=== PATIENT | female | born 1970 ===

== ENCOUNTER 2016-08-01 09:31 | Emergency (ER) | payer OTHER ==
[2016-08-01 10:11] VITALS: RESP 18; TEMP 98.2; BMI 29.5
--- NOTE | 2016-08-01 10:53 | ED PDOC ---
Arrival/HPI - General Chief Complaint: Dizziness/Lightheaded Time Seen by Provider: 08/01/16 10:35 Historian: Patient - History of Present Illness Narrative History of Present Illness (Text): 08/01/16 10:53 46 year old female whose past medical history includes acid reflux and asthma presents to the emergency department with dizziness and nausea for the past three days. She states it has been constant, worsening today. She states it is worse in the morning when she sits up. She also complains of urinary frequent. No urgency or dysuria. Denies diarrhea, fever, cough, ear pain, or vaginal bleeding. PMD: None Time/Duration: < week Symptom Onset: Gradual Symptom Course: Worsening Associated Symptoms (Text): None Past Medical History - Provider Review Nursing Documentation Reviewed: Yes - Infectious Disease Hx of Infectious Diseases: None - Tetanus Immunization Tetanus Immunization: Unknown - Cardiac Hx Cardiac Disorders: No - Pulmonary Hx Respiratory Disorders: Yes Hx Asthma: Yes - Neurological Hx Neurological Disorder: No - HEENT Hx HEENT Disorder: No - Renal Hx Renal Disorder: No - Endocrine/Metabolic Hx Endocrine Disorders: No - Hematological/Oncological Hx Blood Disorders: No - Integumentary Hx Dermatological Disorder: No - Musculoskeletal/Rheumatological Hx Arthritis: No Hx Herniated Disk: Yes - Gastrointestinal Hx Gastrointestinal Disorders: No - Genitourinary/Gynecological Hx Genitourinary Disorders: No - Psychiatric Hx Psychophysiologic Disorder: Yes Hx Depression: Yes Hx Substance Use: Yes - Past Surgical History Past Surgical History: No Previous - Surgical History Hx Tubal Ligation: Yes - Anesthesia Hx Anesthesia: Yes Hx Anesthesia Reactions: No Hx Malignant Hyperthermia: No - Suicidal Assessment Feels Threatened In Home Enviroment: No Family/Social History - Physician Review Nursing Documentation Reviewed: Yes Family/Social History: Unknown Family HX Smoking Status: Heavy Smoker > 10 Cigarettes Daily Hx Alcohol Use: Yes Hx Substance Use: Yes Substance used: marijuana Hx Substance Use Treatment: No Allergies/Home Meds Allergies/Adverse Reactions: Allergies No Known Allergies Allergy (Verified 08/01/16 10:11) Home Medications: Home Meds Medication Instructions Recorded Confirmed Montelukast [Singulair] 10 mg PO DAILY 08/01/13 08/01/16 Albuterol HFA [Ventolin HFA 90 2 puff INH PRN PRN 12/03/14 08/01/16 mcg/actuation (8 g)] Fluticasone/Salmeterol 250/50 1 puff INH DAILY 12/03/14 08/01/16 [Advair Diskus 250/50] Bupropion HCl [Wellbutrin Sr] 150 mg PO DAILY 08/01/16 08/01/16 Review of Systems - Physician Review All systems were reviewed & negative as marked: Yes - Review of Systems Constitutional: absent: Fevers ENT: Other (No ear pain) Respiratory: absent: Cough Gastrointestinal: Nausea. absent: Diarrhea Genitourinary Female: Frequency. absent: Dysuria, Hematuria, Urine Output Changes, Vaginal Bleeding, Vaginal Discharge Musculoskeletal: absent: Arthralgias, Back Pain, Neck Pain Neurological: Dizziness. absent: Focal Weakness Endocrine: absent: Diaphoresis Physical Exam Vital Signs Reviewed: Yes Vital Signs Temp Pulse Resp BP Pulse Ox 08/01/16 15:43 96 H 18 141/84 99 08/01/16 14:08 90 18 138/81 99 08/01/16 10:05 98.2 F 95 H 18 139/87 98 Temperature: Afebrile Blood Pressure: Normal Pulse: Regular Respiratory Rate: Normal Appearance: Positive for: Well-Appearing, Non-Toxic, Comfortable Pain Distress: None Mental Status: Positive for: Alert and Oriented X 3 - Systems Exam Head: Present: Atraumatic, Normocephalic Pupils: Present: PERRL Extroacular Muscles: Present: EOMI Conjunctiva: Present: Normal Ears: Present: Normal, NORMAL TM. No: Erythema Mouth: Present: Moist Mucous Membranes Pharnyx: Present: Normal. No: ERYTHEMA, EXUDATE Nose (Internal): Present: Normal Inspection Neck: Present: Normal Range of Motion. No: Meningeal Signs Respiratory/Chest: Present: Clear to Auscultation, Good Air Exchange. No: Respiratory Distress, Accessory Muscle Use Cardiovascular: Present: Regular Rate and Rhythm, Normal S1, S2. No: Murmurs Abdomen: Present: Normal Bowel Sounds. No: Tenderness, Distention, Peritoneal Signs Back: Present: Normal Inspection Upper Extremity: Present: Normal Inspection. No: Cyanosis, Edema Lower Extremity: Present: Normal Inspection. No: Edema Neurological: Present: GCS=15, CN II-XII Intact, Speech Normal, Motor Func Grossly Intact, Normal Sensory Function, Normal Cerebellar Funct Skin: Present: Warm, Dry, Normal Color. No: Rashes Psychiatric: Present: Alert, Oriented x 3, Normal Insight, Normal Concentration Medical Decision Making ED Course and Treatment: Impression: 46 year old female whose past medical history includes acid reflux and asthma presents to the emergency department with dizziness and nausea for the past three days. Differential Diagnosis included but are not limited to: Gastritis, reflux vs vertigo vs UTI Plan: -- EKG, Chest X-ray -- Reglan -- IV fluids -- Labs -- Reassess and disposition Progress Notes: 08/01/16 11:54 CXR Impression: As read by me, no pneumothorax, no pneumonia, no cardiomegaly, no infiltrates Patient was noted to improve with IVF. WBC is elevated. Urinalysis positive for blood and nitrates. Will treat with Levaquin for UTI. This could be causing her dizziness and nausea. Symptoms resolved prior to discharge. She is able to walk without ataxia or dizziness. She will f/u with her PMD in 1-2days. She was advised to return immediately to the ED if symptoms worsened or any other concern. She was advised to return if fever, unable to take antibiotics or any other concerns. - Lab Interpretations Lab Results: 08/01/16 11:45 08/01/16 11:45 Lab Results 08/01/16 13:00: pO2 209 H, VBG pH 7.41, VBG pCO2 39.0 L, VBG HCO3 24.7, VBG Total CO2 25.9, VBG O2 Sat (Calc) 100.3 H, VBG Base Excess 0.1, VBG Potassium 4.2, Glucose 91, Lactate 0.8, FiO2 21.0, Sodium 137.0, Chloride 106.0, Venous Blood Potassium 4.2 08/01/16 11:45: Sodium 138, Potassium 4.1, Chloride 104, Carbon Dioxide 24, Anion Gap 14, BUN 14, Creatinine 0.6, Est GFR ( Amer) > 60, Est GFR (Non- Af Amer) > 60, Random Glucose 95, Calcium 9.4, Magnesium 2.1, Total Bilirubin 0.7, AST 21, ALT 24, Alkaline Phosphatase 93, Lactate Dehydrogenase 299 L, Total Creatine Kinase 54, Troponin I < 0.01, Total Protein 7.8, Albumin 4.5, Globulin 3.3, Albumin/Globulin Ratio 1.4 08/01/16 11:45: WBC 15.4 H, RBC 5.01, Hgb 15.3, Hct 44.7, MCV 89.2, MCH 30.5, MCHC 34.2, RDW 13.8, Plt Count 349, MPV 9.5, Gran % 83.9 H, Lymph % (Auto) 11.3 L, [place] % (Auto) 4.5, Eos % (Auto) 0.2 L, Baso % (Auto) 0.1, Gran # 12.95 H, Lymph # 1.8, [place] # 0.7 H, Eos # 0.0, Baso # 0.01 08/01/16 11:40: Urine Color Yellow, Urine Appearance Clear, Urine pH 6.5, Ur Specific [place] 1.020, Urine Protein Trace H, Urine Glucose (UA) Negative, Urine Ketones 40 H, Urine Blood Trace-intact H, Urine Nitrate Positive H, Urine Bilirubin Negative, Urine Urobilinogen 1.0 H, Ur Leukocyte Esterase Negative, Urine RBC 0 - 2, Urine WBC 2 - 5, Ur Epithelial Cells 4 - 5, Urine Bacteria Many I have reviewed the lab results: Yes Interpretation: Abnormal lab values (WBC elevated) - RAD Interpretation Radiology Orders: 08/01/16 11:08 CHEST PORTABLE [RAD] Stat CXR normal. No infiltrates. [employer] Director: ED Physician - Medication Orders Current Medication Orders: Discontinued Medications Sodium Chloride (Sodium Chloride 0.9%) 500 mls @ 999 mls/hr IV .Q31M STA Stop: 08/01/16 11:59 Last Admin: 08/01/16 11:39 Dose: 999 mls/hr Sodium Chloride (Sodium Chloride 0.9%) 500 mls @ 999 mls/hr IV .Q31M STA Stop: 08/01/16 13:23 Last Admin: 08/01/16 14:03 Dose: 999 mls/hr Levofloxacin (Levaquin) 750 mg PO STAT STA Stop: 08/01/16 15:01 Last Admin: 08/01/16 15:22 Dose: 750 mg Metoclopramide HCl (Reglan) 10 mg IVP STAT STA Stop: 08/01/16 11:30 Last Admin: 08/01/16 11:38 Dose: 10 mg - Wilmeribe Statement The provider has reviewed the documentation as recorded by the Moy Hernandez Provider Scribe Attestation: All medical record entries made by the Scribe were at my direction and personally dictated by me. I have reviewed the chart and agree that the record accurately reflects my personal performance of the history, physical exam, medical decision making, and the department course for this patient. I have also personally directed, reviewed, and agree with the discharge instructions and disposition. Disposition/Present on Arrival - Present on Arrival Any Indicators Present on Arrival: No History of DVT/PE: No History of Uncontrolled Diabetes: No Urinary Catheter: No History of Decub. Ulcer: No History Surgical Site Infection Following: None - Disposition Have Diagnosis and Disposition been Completed?: Yes Diagnosis: UTI (urinary tract infection), Vomiting, Dizziness Disposition: HOME/ ROUTINE Disposition Time: 15:43 Patient Plan: Discharge Condition: IMPROVED Discharge Instructions (ExitCare): Urinary Tract Infection in Women (ED), Dizziness (ED) Additional Instructions: Ms Moralez, thank you for letting us take care of you today. Your provider was Dr. Melvin. You were treated for Dizziness, Vomiting, UTI. The emergency medical care you received today was directed at your acute symptoms. If you were prescribed any medication, please fill it and take as directed. It may take several days for your symptoms to resolve. Return to the Emergency Department if your symptoms worsen, do not improve, or if you have any other problems. Please contact your doctor or call one of the physicians/clinics you have been referred to that are listed on the Patient Visit Information form that is included in your discharge packet. Bring any paperwork you were given at discharge with you along with any medications you are taking to your follow up visit. Our treatment cannot replace ongoing medical care by a primary care provider (PCP) outside of the emergency department. Thank you for allowing the [facility] team to be part of your care today. If you had an X-Ray or CT scan: A Radiologist will review the ED reading if any change in treatment is needed we will contact you. If you had a blood, urine, or wound culture: It will take several days for the results, if any change in treatment is needed we will contact you. If you had an STI test: It will take 48 hours for the results. Please call after 1 week if you have not heard back. Prescriptions: Levofloxacin [Levaquin] 750 mg PO DAILY #6 tablet Ondansetron ODT [Zofran ODT] 4 mg PO Q6 #14 odt Referrals: [facility] [place] [Outside] - Follow up with primary Forms: [employer] Connect ([place]ian), WORK NOTE
[2016-08-01] MEDS ORDERED: Sodium Chloride 0.9% 500 ML IV STA ×2 (11:29→12:53)
[2016-08-01 11:54] LABS: ADD MANUAL DIFF? NO
[2016-08-01 12:03] LABS: BASO # 0.01 K/mm3 (0.0-2.0); BASO % 0.1 % (0.0-3.0); EOS % 0.2 % (1.5-5.0); GRAN # 12.95 (1.4-6.5); GRAN % 83.9 % (50.0-68.0); HEMATOCRIT 44.7 % (36.0-48.0); LYMPH # 1.8 (1.2-3.4); LYMPH % 11.3 % (22.0-35.0); MEAN CELL VOLUME 89.2 fL (80.0-105.0); MEAN CORPUSCULAR HEMOGLOBIN 30.5 pg (25.0-35.0); MEAN CORPUSCULAR HGB CONC 34.2 g/dl (31.0-37.0); MEAN PLATELET VOLUME 9.5 fl (7.0-11.0); MONO # 0.7 (0.1-0.6); MONO % 4.5 % (1.0-6.0); PLATELET COUNT 349 10^3/uL (120.0-450.0); RED CELL DISTRIBUTION WIDTH 13.8 % (11.5-14.5); WHITE BLOOD COUNT 15.4 10^3/ul (4.5-11.0)
[2016-08-01 12:03] LABS: PH,URINE 6.5 (4.7-8.0); URINE BILIRUBIN NEGATIVE (NEGATIVE); URINE BLOOD TRACE-INTACT (NEGATIVE); URINE GLUCOSE (UA) NEGATIVE (NEGATIVE); URINE KETONE 40 mg/dL (NEGATIVE); URINE LEUKOCYTE ESTERASE NEGATIVE Leu/uL (NEGATIVE); URINE PROTEIN TRACE mg/dL (<30 mg/dL)
[2016-08-01 12:04] LABS: URINE APPEARANCE CLEAR (CLEAR); URINE COLOR YELLOW (YELLOW)
[2016-08-01 12:11] LABS: URINE RBC 0 - 2 /hpf (0-2)
[2016-08-01 12:12] LABS: URINE BACTERIA MANY (NEG)
[2016-08-01 12:16] LABS: BILIRUBIN,TOTAL 0.7 mg/dL (0.2-1.3); BLOOD UREA NITROGEN 14 mg/dL (7-21); CALCIUM 9.4 mg/dL (8.4-10.5); CARBON DIOXIDE 24 mmol/L (21-33); CHLORIDE 104 mmol/L (95-110); GFR AFRICAN-AMERICAN > 60; GLUCOSE,RANDOM 95 mg/dL (70-110); POTASSIUM 4.1 mmol/L (3.6-5.0); SODIUM 138 mmol/L (132-148)
--- NOTE | 2016-08-01 12:24 | RAD ---
HISTORY: [place] COMPARISON: 12/03/2014 FINDINGS: LUNGS: No active pulmonary disease. PLEURA: No significant pleural effusion identified, no pneumothorax apparent. CARDIOVASCULAR: Normal. OSSEOUS STRUCTURES: No significant abnormalities. VISUALIZED UPPER ABDOMEN: Normal. OTHER FINDINGS: None. IMPRESSION: No active disease.
[2016-08-01 12:28] LABS: ALB/GLOB RATIO 1.4 (1.1-1.8); ALKALINE PHOSPHATASE 93 U/L (38-133); ALT/SGPT 24 U/L (7-56); AST/SGOT 21 U/L (15-39); MAGNESIUM 2.1 mg/dL (1.7-2.2); TOTAL PROTEIN 7.8 g/dL (5.8-8.3)
[2016-08-01 12:32] LABS: TROPONIN I < 0.01 ng/mL
[2016-08-01 13:22] LABS: VENOUS BLOOD GAS BASE EXCESS 0.1 mmol/L (0.0-2.0); VENOUS BLOOD PH 7.41 (7.32-7.43)
[2016-08-01 14:09] VITALS: O2SAT 99
[2016-08-01] MEDS ORDERED: cefTRIAXone 1 gm 1 GM/100 ML BAG IVPB STA (14:59)
[2016-08-01] MEDS ORDERED: levoFLOXacin 750 MG TAB PO STA (15:00)
[2016-08-01 15:44] VITALS: BP 141/84; PULSE 96
--- NOTE | 2016-08-02 10:12 | CARD ---
APPROVED REPORT EKG Measurement Heart [id number] [place] 120P [id number] <Conclusion> Normal sinus rhythm PRWP, possible anterior NE, age unknown
== END 2016-08-01 15:43 | disposition home or self-care (01) ==
LOC: ED 09:31
DX: N39.0 Urinary tract infection, site not specified (principal); R11.10 Vomiting, unspecified; R42 Dizziness and giddiness
CPT/HCPCS: 71010; 80053; 81001; 82550; 82803; 83615; 83735; 84484; 85025; 87086; 87181; 93005; 96374; 99285; J2765; J7040

== ENCOUNTER 2016-08-09 17:36 | Emergency (ER) | payer OTHER ==
[2016-08-09 17:36] VITALS: BMI 29.5
[2016-08-09 17:44] VITALS: TEMP 98.1
[2016-08-09] MEDS ORDERED: Sodium Chloride 0.9% 1,000 ML IV STA (18:08)
--- NOTE | 2016-08-09 18:12 | ED PDOC ---
Arrival/HPI - General Chief Complaint: Dizziness/Lightheaded Time Seen by Provider: 08/09/16 17:44 Historian: Patient - History of Present Illness Narrative History of Present Illness (Text): 08/09/16 18:10 This 46 yo female with pmh asthma, depression, migraines, presents to this ED c.o. dizziness, anxious, higgins, nausea x 2 days. Patient stated that she is not sure that her symptoms are from migraines, or from anxiety. Patient has a normal gait. Denies cp, wheezing, abdominal pain, vomiting, rectal bleeding, melena, hematochezia, recent travel, diplopia, dysarthria, dysphagia, weakness, paresthesias, SI, HI, urinary symptoms, or abnormal gait. Time/Duration: Other (2 days) Context: Home Past Medical History - Provider Review Nursing Documentation Reviewed: Yes - Infectious Disease Hx of Infectious Diseases: None - Tetanus Immunization Tetanus Immunization: Unknown - Cardiac Hx Cardiac Disorders: No - Pulmonary Hx Respiratory Disorders: Yes Hx Asthma: Yes - Neurological Hx Neurological Disorder: No - HEENT Hx HEENT Disorder: No - Renal Hx Renal Disorder: No - Endocrine/Metabolic Hx Endocrine Disorders: No - Hematological/Oncological Hx Blood Disorders: No - Integumentary Hx Dermatological Disorder: No - Musculoskeletal/Rheumatological Hx Arthritis: No Hx Herniated Disk: Yes - Gastrointestinal Hx Gastrointestinal Disorders: No - Genitourinary/Gynecological Hx Genitourinary Disorders: No - Psychiatric Hx Psychophysiologic Disorder: Yes Hx Depression: Yes Hx Substance Use: Yes - Past Surgical History Past Surgical History: No Previous - Surgical History Hx Tubal Ligation: Yes - Anesthesia Hx Anesthesia: Yes Hx Anesthesia Reactions: No Hx Malignant Hyperthermia: No - Suicidal Assessment Feels Threatened In Home Enviroment: No Family/Social History - Physician Review Nursing Documentation Reviewed: Yes Family/Social History: No Known Family HX Smoking Status: Heavy Smoker > 10 Cigarettes Daily Hx Alcohol Use: Yes Frequency of alcohol use: Socially Hx Substance Use: Yes Substance used: marijuana Hx Substance Use Treatment: No Allergies/Home Meds Allergies/Adverse Reactions: Allergies No Known Allergies Allergy (Verified 08/01/16 10:11) Home Medications: Home Meds Medication Instructions Recorded Confirmed Montelukast [Singulair] 10 mg PO DAILY 08/01/13 08/09/16 Albuterol HFA [Ventolin HFA 90 2 puff INH PRN PRN 10//15 06/16/17 mcg/actuation (8 g)] Review of Systems - Review of Systems Constitutional: Normal. absent: Fatigue, Weight Change Eyes: Normal. absent: Vision Changes, Photophobia ENT: Normal. absent: Voice Changes, Sore Throat, Rhinorrhea Respiratory: Cough. absent: SOB, Sputum, Wheezing Cardiovascular: Normal. absent: Chest Pain, Palpitations Gastrointestinal: Nausea. absent: Abdominal Pain, Diarrhea, Vomiting Genitourinary Female: Normal. absent: Dysuria, Frequency, Hematuria Musculoskeletal: Normal. absent: Arthralgias, Back Pain, Neck Pain Skin: Normal. absent: Rash Neurological: Headache, Dizziness. absent: Focal Weakness, Gait Changes, Speech Changes, Disequilibrium, Seizure Endocrine: Normal Hemo/Lymphatic: Normal Psychiatric: Anxiety. absent: Depression, Suicidal Ideation Physical Exam Vital Signs Temp Pulse Resp BP Pulse Ox 08/09/16 21:02 77 18 151/97 H 100 08/09/16 17:43 98.1 F 88 16 165/91 H 99 Medical Decision Making ED Course and Treatment: 08/09/16 21:25 Re-evaluation. Patient feels better. Discussed results and plan with patient who expresses understanding. All questions answered and there is agreement with the plan to discharge home with instructions. Patient stable for discharge. Return if symptoms persist or worsen. Patient is requesting information for [facility]. Patient remained stable during the course of ED visit. Patient has a normal gait. Patient was noticed to rock back and forth during the course of ED visit. Patient denies at this time dizziness, nausea, vomiting, HIGGINS, diplopia , SI or HI. Patient understands Vistaril could cause drowsiness, and to avoid driving or operate machinery. Re-evaluation Time: 21:25 Reassessment Condition: Re-examined, Improved - Lab Interpretations Microbiology Results: Microbiology Results 08/09/16 20:00 Urine,Clean Catch Urine Culture - Final Gram Positive Cocci Lab Results: 08/09/16 20:40 08/09/16 20:40 Lab Results 08/09/16 20:40: Sodium 138, Potassium 3.1 L, Chloride 105, Carbon Dioxide 25, Anion Gap 11, BUN 8, Creatinine 0.6, Est GFR ( Amer) > 60, Est GFR (Non- Af Amer) > 60, Random Glucose 78, Calcium 9.5, Total Bilirubin 0.5, AST 24, ALT 26, Alkaline Phosphatase 88, Total Protein 7.4, Albumin 4.1, Globulin 3.3, Albumin/Globulin Ratio 1.2 08/09/16 20:40: WBC 13.0 H, RBC 4.62, Hgb 14.0, Hct 41.3, MCV 89.4, MCH 30.3, MCHC 33.9, RDW 14.3, Plt Count 348, MPV 10.4, Gran % 79.6 H, Lymph % (Auto) 15.4 L, [place] % (Auto) 4.0, Eos % (Auto) 0.8 L, Baso % (Auto) 0.2, Gran # 10.30 H , Lymph # 2.0, [place] # 0.5, Eos # 0.1, Baso # 0.03 08/09/16 18:20: Urine Color Yellow, Urine Appearance Sl cloudy, Urine pH 6.0, Ur Specific [place] >= 1.030, Urine Protein Negative, Urine Glucose (UA) Negative, Urine Ketones Negative, Urine Blood Moderate H, Urine Nitrate Negative , Urine Bilirubin Negative, Urine Urobilinogen 0.2, Ur Leukocyte Esterase Negative, Urine RBC 5 - 10, Urine WBC 10 - 15, Ur Epithelial Cells Many, Urine Bacteria Many - EKG Interpretation Interpreted by ED Physician: Yes (Synus rhythm with short MT. No ST changes) Type: 12 lead EKG Comparison: No previous EKG avail. - Medication Orders Current Medication Orders: Discontinued Medications Cephalexin Monohydrate (Keflex) 500 mg PO STAT STA PRN Reason: Protocol Stop: 08/09/16 19:06 Last Admin: 08/09/16 19:47 Dose: 500 mg Diazepam (Valium) 5 mg PO ONCE ONE PRN Reason: Protocol Stop: 08/09/16 18:10 Last Admin: 08/09/16 18:39 Dose: 5 mg Sodium Chloride (Sodium Chloride 0.9%) 1,000 mls @ 999 mls/hr IV .Q1H1M STA Stop: 08/09/16 19:08 Last Admin: 08/09/16 18:38 Dose: 999 mls/hr Ketorolac Tromethamine (Toradol) 15 mg IVP STAT STA Stop: 08/09/16 18:11 Last Admin: 08/09/16 18:39 Dose: 15 mg Metoclopramide HCl (Reglan) 10 mg IVP STAT STA Stop: 08/09/16 18:10 Last Admin: 08/09/16 18:39 Dose: 10 mg Potassium Chloride (K-Dur 20 Meq Er Tab) 60 meq PO STAT STA Stop: 08/09/16 21:25 Last Admin: 08/09/16 22:08 Dose: 60 meq Disposition/Present on Arrival - Present on Arrival Any Indicators Present on Arrival: No History of DVT/PE: No History of Uncontrolled Diabetes: No Urinary Catheter: No History of Decub. Ulcer: No History Surgical Site Infection Following: None - Disposition Have Diagnosis and Disposition been Completed?: Yes Diagnosis: Urinary tract infection, Headache, Anxiety Disposition: HOME/ ROUTINE Disposition Time: 21:27 Condition: GOOD Discharge Instructions (ExitCare): Urinary Tract Infection in Women (ED), Dizziness (ED), Anxiety (ED), General Headache (ED) Additional Instructions: Call [facility] for follow up visit in 2-3 days. Also call urologist for revaluation of persisting UTI. Take medication as instructed. Return to emergency if symptoms worsen. Prescriptions: Cephalexin [cephalexin] 500 mg PO BID #14 cap hydrOXYzine Pamoate [Vistaril] 50 mg PO Q6H PRN #30 cap PRN Reason: Anxiety [facility]errals: [facility] [[facility]] - Follow up with primary [facility] [Outside] - Follow up with primary Miguel Thompson MD [Staff Provider] - Follow up with primary Forms: WORK NOTE
[2016-08-09 18:37] LABS: URINE BILIRUBIN NEGATIVE (NEGATIVE); URINE BLOOD MODERATE (NEGATIVE); URINE GLUCOSE (UA) NEGATIVE (NEGATIVE); URINE KETONE NEGATIVE (NEGATIVE); URINE LEUKOCYTE ESTERASE NEGATIVE Leu/uL (NEGATIVE); URINE PROTEIN NEGATIVE mg/dL (<30 mg/dL); URINE UROBILINOGEN 0.2 E.U./dL (<1 E.U./dL)
[2016-08-09 18:46] LABS: URINE APPEARANCE SL CLOUDY (CLEAR); URINE COLOR YELLOW (YELLOW)
[2016-08-09 18:50] LABS: URINE BACTERIA MANY (NEG); URINE EPITHELIAL CELLS MANY /hpf (0-5)
[2016-08-09 20:49] LABS: ADD MANUAL DIFF? NO
[2016-08-09 20:57] LABS: BASO # 0.03 K/mm3 (0.0-2.0); BASO % 0.2 % (0.0-3.0); EOS # 0.1 (0.0-0.7); EOS % 0.8 % (1.5-5.0); GRAN % 79.6 % (50.0-68.0); HEMATOCRIT 41.3 % (36.0-48.0); LYMPH % 15.4 % (22.0-35.0); MEAN CELL VOLUME 89.4 fL (80.0-105.0); MEAN CORPUSCULAR HEMOGLOBIN 30.3 pg (25.0-35.0); MEAN CORPUSCULAR HGB CONC 33.9 g/dl (31.0-37.0); MEAN PLATELET VOLUME 10.4 fl (7.0-11.0); MONO # 0.5 (0.1-0.6); PLATELET COUNT 348 10^3/uL (120.0-450.0); RED CELL DISTRIBUTION WIDTH 14.3 % (11.5-14.5)
[2016-08-09 21:03] VITALS: BP 151/97; PULSE 77; RESP 18; O2SAT 100
[2016-08-09 21:15] LABS: ALB/GLOB RATIO 1.2 (1.1-1.8); ALKALINE PHOSPHATASE 88 U/L (38-133); ALT/SGPT 26 U/L (7-56); AST/SGOT 24 U/L (15-39); BILIRUBIN,TOTAL 0.5 mg/dL (0.2-1.3); BLOOD UREA NITROGEN 8 mg/dL (7-21); CALCIUM 9.5 mg/dL (8.4-10.5); CARBON DIOXIDE 25 mmol/L (21-33); CHLORIDE 105 mmol/L (98-107); GFR AFRICAN-AMERICAN > 60; GLUCOSE,RANDOM 78 mg/dL (70-110); POTASSIUM 3.1 mmol/L (3.6-5.0); SODIUM 138 mmol/L (132-148); TOTAL PROTEIN 7.4 g/dL (5.8-8.3)
[2016-08-09] MEDS ORDERED: Potassium Chloride 20 mEq ER Tab PO STA (21:24)
--- NOTE | 2016-08-10 15:43 | CARD ---
APPROVED REPORT EKG Measurement Heart [id number] [id number] [id number] <Conclusion> Sinus rhythm with short [place] Otherwise normal ECG
== END 2016-08-09 22:15 | disposition home or self-care (01) ==
LOC: ED 17:36
DX: R51 Headache (principal); N39.0 Urinary tract infection, site not specified; F41.9 Anxiety disorder, unspecified
CPT/HCPCS: 80053; 81001; 81025; 85025; 87086; 93005; 96361; 96374; 96375; 99285; J1885; J2765; J7040

== ENCOUNTER 2016-08-30 15:57 | Emergency (ER) | payer OTHER ==
[2016-08-30 15:57] VITALS: BMI 29.5
[2016-08-30 16:18] VITALS: TEMP 98.7
--- NOTE | 2016-08-30 16:32 | ED PDOC ---
Arrival/HPI - General Chief Complaint: Abdominal Pain Time Seen by Provider: 08/30/16 16:27 Historian: Patient - History of Present Illness Narrative History of Present Illness (Text): 08/30/16 16:28 46 year old female whose past medical history includes depression and asthma presents to the emergency department complaining of nausea, vomiting, diarrhea, and right sided abdominal pain for the past two weeks. She states she was seen in the ER and at her PMD's office with no improvement. Patient reports she had an ultrasound two days ago outpatient to evaluate her gallbladder, which she states was normal. She reports 3 episodes of non-bloody vomiting today. Denies other complaints. Time/Duration: > week Symptom Course: Unchanged Modifying Factors (Text): None Past Medical History - Provider Review Nursing Documentation Reviewed: Yes - Infectious Disease Hx of Infectious Diseases: None - Tetanus Immunization Tetanus Immunization: Unknown - Reproductive Menopause: No - Cardiac Hx Cardiac Disorders: No - Pulmonary Hx Respiratory Disorders: Yes Hx Asthma: Yes - Neurological Hx Neurological Disorder: No - HEENT Hx HEENT Disorder: No - Renal Hx Renal Disorder: No - Endocrine/Metabolic Hx Endocrine Disorders: No - Hematological/Oncological Hx Blood Disorders: No - Integumentary Hx Dermatological Disorder: No - Musculoskeletal/Rheumatological Hx Arthritis: No Hx Herniated Disk: Yes - Gastrointestinal Hx Gastrointestinal Disorders: No - Genitourinary/Gynecological Hx Genitourinary Disorders: No - Psychiatric Hx Psychophysiologic Disorder: Yes Hx Depression: Yes Hx Substance Use: Yes - Past Surgical History Past Surgical History: No Previous - Surgical History Hx Tubal Ligation: Yes - Anesthesia Hx Anesthesia: Yes Hx Anesthesia Reactions: No Hx Malignant Hyperthermia: No - Suicidal Assessment Feels Threatened In Home Enviroment: No Family/Social History - Physician Review Nursing Documentation Reviewed: Yes Family/Social History: Unknown Family HX Smoking Status: Heavy Smoker > 10 Cigarettes Daily Hx Alcohol Use: Yes Hx Substance Use: Yes Substance used: marijuana Hx Substance Use Treatment: No Allergies/Home Meds Allergies/Adverse Reactions: Allergies No Known Allergies Allergy (Verified 08/01/16 10:11) Home Medications: Home Meds Medication Instructions Recorded Confirmed Montelukast [Singulair] 10 mg PO DAILY 08/01/13 08/30/16 Albuterol HFA [Ventolin HFA 90 2 puff INH PRN PRN 12/03/14 08/30/16 mcg/actuation (8 g)] Codeine/Butalbital/ASA/Caffein 1 cap PO PRN PRN 08/30/16 08/30/16 [Ascomp W/Codeine 325 mg-50 mg-40 mg-30 mg] Review of Systems - Physician Review All systems were reviewed & negative as marked: Yes - Review of Systems Respiratory: absent: SOB Gastrointestinal: Abdominal Pain (Right sided), Diarrhea, Nausea, Vomiting Physical Exam - Physical Exam Narrative Physical Exam (Text): Constitutional: Tearful. Head: Normocephalic. Atraumatic. Eyes: PERRL. ENT: Moist mucous membranes. Neck: Supple. Cardiovascular: Regular rate. Chest: No tenderness. Respiratory: Clear to auscultation bilaterally. GI: Soft. Nontender. Nondistended. Back: No CVA tenderness. Musculoskeletal: No tenderness or swelling of extremities. Skin: No rash. Neurologic: Alert, no focal deficit. Vital Signs Reviewed: Yes Vital Signs Temp Pulse Resp BP Pulse Ox 08/30/16 17:25 79 18 142/65 98 08/30/16 16:00 98.7 F 85 20 148/68 97 Temperature: Afebrile Blood Pressure: Normal Pulse: Regular Respiratory Rate: Normal Appearance: Positive for: Well-Appearing, Non-Toxic Mental Status: Positive for: Alert and Oriented X 3 Medical Decision Making ED Course and Treatment: Impression: 46 year old female whose past medical history includes depression and asthma presents to the emergency department complaining of nausea, vomiting , diarrhea, and right sided abdominal pain for the past two weeks. Plan: -- CT Abdomen/Pelvis -- Labs -- Reassess and disposition Prior Visits: Notes and results from previous visits were reviewed. Patient last seen in ED on 08/09/16 for dizziness, anxiety, headache, nausea, and discharged home. Progress Notes: PROCEDURE: CT Abdomen and Pelvis with contrast Cobbler Mckay : Elijah Chaudhry MD Report Date : 08/30/2016 18:02:40 IMPRESSION: No acute abnormality. No evidence of appendicitis, pancreatitis or cholecystitis. No bowel obstruction. Discharged home, f/u PMD, return to ER for worsening pain, fever, dyspnea, vomiting, or any other problem. - Lab Interpretations Lab Results: 08/30/16 17:00 08/30/16 17:00 Lab Results 08/30/16 17:00: Sodium 142, Potassium 3.5 L, Chloride 107, Carbon Dioxide 24, Anion Gap 15, BUN 10, Creatinine 0.6, Est GFR ( Amer) > 60, Est GFR (Non- Af Amer) > 60, Random Glucose 104, Calcium 9.2, Total Bilirubin 0.3, AST 23, ALT 29, Alkaline Phosphatase 79, Total Protein 7.1, Albumin 4.1, Globulin 2.9, Albumin/Globulin Ratio 1.4, Lipase 75 08/30/16 17:00: WBC 10.6, RBC 4.16, Hgb 12.8, Hct 37.2, MCV 89.4, MCH 30.8, MCHC 34.4, RDW 14.3, Plt Count 298, MPV 10.3, Gran % 77.0 H, Lymph % (Auto) 15.6 L, Humphreys % (Auto) 4.8, Eos % (Auto) 2.3, Baso % (Auto) 0.3, Gran # 8.16 H, Lymph # 1.7, Humphreys # 0.5, Eos # 0.2, Baso # 0.03 08/30/16 16:40: Urine Color Yellow, Urine Appearance Clear, Urine pH 6.0, Ur Specific [place] 1.015, Urine Protein Negative, Urine Glucose (UA) Negative, Urine Ketones Negative, Urine Blood Small H, Urine Nitrate Negative, Urine Bilirubin Negative, Urine Urobilinogen 0.2, Ur Leukocyte Esterase Negative, Urine RBC 0 - 2, Urine WBC 0 - 2, Ur Epithelial Cells 3 - 4, Urine Bacteria Trace, Urine HCG, Qual Negative - RAD Interpretation Radiology Orders: 08/30/16 16:30 ABD & PELVIS IV CONTRAST ONLY [CT] 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 - Medication Orders Current Medication Orders: Discontinued Medications Sodium Chloride (Sodium Chloride 0.9%) 1,000 mls @ 999 mls/hr IV .Q1H1M STA Stop: 08/30/16 18:09 Last Admin: 08/30/16 17:52 Dose: 999 mls/hr Iohexol (Omnipaque 350 100 Ml) Confirm Administered Dose 350 mg .ROUTE .STK-MED ONE Stop: 08/30/16 17:38 Ketorolac Tromethamine (Toradol) 30 mg IVP STAT STA Stop: 08/30/16 17:10 Last Admin: 08/30/16 17:55 Dose: 30 mg Ondansetron HCl (Zofran Inj) 8 mg IVP STAT STA Stop: 08/30/16 17:10 Last Admin: 08/30/16 17:55 Dose: 8 mg - Wilmeribe Statement The provider has reviewed the documentation as recorded by the Moy Hernandez Provider Scribe Attestation: All medical record entries made by the Moy were at my direction and personally dictated by me. I have reviewed the chart and agree that the record accurately reflects my personal performance of the history, physical exam, medical decision making, and the department course for this patient. I have also personally directed, reviewed, and agree with the discharge instructions and disposition. Disposition/Present on Arrival - Present on Arrival Any Indicators Present on Arrival: No History of DVT/PE: No History of Uncontrolled Diabetes: No Urinary Catheter: No History of Decub. Ulcer: No History Surgical Site Infection Following: None - Disposition Have Diagnosis and Disposition been Completed?: Yes Diagnosis: Abdominal pain Disposition: HOME/ ROUTINE Disposition Time: 18:30 Patient Plan: Discharge Condition: STABLE Discharge Instructions (ExitCare): Abdominal Pain (ED) Prescriptions: Ondansetron ODT [Zofran ODT] 4 mg PO Q8 #12 odt Referrals: PCP,NO [Primary Care Provider] - Follow up with primary
[2016-08-30 16:56] LABS: URINE BILIRUBIN NEGATIVE (NEGATIVE); URINE BLOOD SMALL (NEGATIVE); URINE GLUCOSE (UA) NEGATIVE (NEGATIVE); URINE LEUKOCYTE ESTERASE NEGATIVE Leu/uL (NEGATIVE); URINE NITRATE NEGATIVE (NEGATIVE); URINE PROTEIN NEGATIVE mg/dL (<30 mg/dL); URINE UROBILINOGEN 0.2 E.U./dL (<1 E.U./dL)
[2016-08-30 17:07] LABS: HCG,QUALITATIVE URINE NEGATIVE (NEGATIVE)
[2016-08-30 17:08] LABS: URINE APPEARANCE CLEAR (CLEAR); URINE COLOR YELLOW (YELLOW)
[2016-08-30] MEDS ORDERED: Sodium Chloride 0.9% 1,000 ML IV STA (17:09)
[2016-08-30 17:12] LABS: URINE BACTERIA TRACE (NEG); URINE RBC 0 - 2 /hpf (0-2); URINE WBC 0 - 2 /hpf (0-6)
[2016-08-30 17:16] LABS: BASO # 0.03 K/mm3 (0.0-2.0); BASO % 0.3 % (0.0-3.0); EOS # 0.2 (0.0-0.7); EOS % 2.3 % (1.5-5.0); GRAN # 8.16 (1.4-6.5); HEMOGLOBIN 12.8 gm/dL (12.0-16.0); LYMPH # 1.7 (1.2-3.4); LYMPH % 15.6 % (22.0-35.0); MEAN CELL VOLUME 89.4 fL (80.0-105.0); MEAN CORPUSCULAR HEMOGLOBIN 30.8 pg (25.0-35.0); MEAN CORPUSCULAR HGB CONC 34.4 g/dl (31.0-37.0); MEAN PLATELET VOLUME 10.3 fl (7.0-11.0); MONO # 0.5 (0.1-0.6); MONO % 4.8 % (1.0-6.0); PLATELET COUNT 298 10^3/uL (120.0-450.0); RBC 4.16 10^6/uL (3.5-6.1); RED CELL DISTRIBUTION WIDTH 14.3 % (11.5-14.5); WHITE BLOOD COUNT 10.6 10^3/ul (4.5-11.0)
[2016-08-30 17:25] VITALS: BP 142/65; PULSE 79; RESP 18; O2SAT 98
[2016-08-30 17:27] LABS: ALB/GLOB RATIO 1.4 (1.1-1.8); ALBUMIN 4.1 g/dL (3.0-4.8); ALT/SGPT 29 U/L (7-56); AST/SGOT 23 U/L (15-39); BLOOD UREA NITROGEN 10 mg/dL (7-21); CALCIUM 9.2 mg/dL (8.4-10.5); GFR AFRICAN-AMERICAN > 60; GFR NON-AFRICAN AMERICAN > 60; LIPASE 75 U/L (23-300)
[2016-08-30] MEDS ORDERED: Iohexol 350 MG/100 ML VIAL ONE (17:37)
--- NOTE | 2016-08-30 18:23 | CT ---
PROCEDURE: CT Abdomen and Pelvis with contrast HISTORY: R sided abdominal pain, vomiting COMPARISON: None. TECHNIQUE: Contrast dose: 100 mL Omnipaque 350 Radiation dose: Total exam DLP = 591.40 mGy-cm. This CT exam was performed using one or more of the following dose reduction techniques: Automated exposure control, adjustment of the mA and/or kV according to patient size, and/or use of iterative reconstruction technique. FINDINGS: LOWER THORAX: Unremarkable. LIVER: Unremarkable. No gross lesion or ductal dilatation. GALLBLADDER AND BILE DUCTS: Unremarkable. PANCREAS: Unremarkable. No gross lesion or ductal dilatation. SPLEEN: Unremarkable. ADRENALS: Unremarkable. No mass. KIDNEYS AND URETERS: Unremarkable. No hydronephrosis. No solid mass. VASCULATURE: Unremarkable. No aortic aneurysm. BOWEL: Unremarkable. No obstruction. No gross mural thickening. APPENDIX: Normal appendix. PERITONEUM: Unremarkable. No free fluid. No free air. LYMPH NODES: Unremarkable. No enlarged lymph nodes. BLADDER: Poorly distended. Grossly normal. REPRODUCTIVE: Unremarkable uterus. BONES: No acute fracture. OTHER FINDINGS: None. IMPRESSION: No acute abnormality. No evidence of appendicitis, pancreatitis or cholecystitis. No bowel obstruction.
== END 2016-08-30 19:00 | disposition home or self-care (01) ==
LOC: ED 15:57
DX: R10.9 Unspecified abdominal pain (principal)
CPT/HCPCS: 74177; 80053; 81001; 83690; 84703; 85025; 87086; 87181; 96374; 96375; 99283; J1885; J2405; J7040; Q9967

== ENCOUNTER 2017-12-03 15:55 | Emergency (ER) | payer OTHER ==
[2017-12-03 16:03] VITALS: BP 117/77; PULSE 83; RESP 18; TEMP 97.7; O2SAT 96; BMI 28.7
[2017-12-03] MEDS ORDERED: Oxycodone/Acetaminophen 5/325 mg Tab PO STA (16:54)
--- NOTE | 2017-12-03 20:13 | ED PDOC ---
Arrival/HPI - General Chief Complaint: Back Pain Time Seen by Provider: 12/03/17 15:58 - History of Present Illness Narrative History of Present Illness (Text): 47 yr old female w/ hx of schizophrenia, back surgery 2 weeks prior p.w back pain. Pt notes back pain is her chronic back pain for which she had surgery for. She notes some tingling running down her leg but no enuresis, encoparesis or loss of sensation in her saddle area. She notes that the main reason she is here however is for insurance issues. She notes that she has prescriptions that have not been filled because she recently lost her insurance and she is concerned in regards to her copay amounts. I endorsed to patient that [facility] and [facility] had cheap prescriptions for low co-pay and pt noted that she would like to try and get emergency meds if possible from ER to hold her until she can go to [facility] or [facility]. She denies any trauma, fever, chills or night sweats. No chest pain or sob. No abdominal pain, constipation or diarrhea. She notes she was seen 1 week prior at another hospital for similar complains and was d/c home. Past Medical History - Infectious Disease Hx of Infectious Diseases: None - Tetanus Immunization Tetanus Immunization: Unknown - Cardiac Hx Cardiac Disorders: No - Pulmonary Hx Respiratory Disorders: Yes Hx Asthma: Yes - Neurological Hx Neurological Disorder: No - HEENT Hx HEENT Disorder: No - Renal Hx Renal Disorder: No - Endocrine/Metabolic Hx Endocrine Disorders: No - Hematological/Oncological Hx Blood Disorders: No - Integumentary Hx Dermatological Disorder: No - Musculoskeletal/Rheumatological Hx Back Pain: Yes Hx Herniated Disk: Yes Other/Comment: s/p back surgery - Gastrointestinal Hx Gastrointestinal Disorders: No - Genitourinary/Gynecological Hx Genitourinary Disorders: No - Psychiatric Hx Psychophysiologic Disorder: Yes Hx Depression: Yes Hx Substance Use: Yes - Past Surgical History Past Surgical History: No Previous - Surgical History Hx Tubal Ligation: Yes Other/Comment: lumbar spine fusion sx. spinal stimulator - Anesthesia Hx Anesthesia: Yes Hx Anesthesia Reactions: No Hx Malignant Hyperthermia: No - Suicidal Assessment Feels Threatened In Home Enviroment: No Family/Social History Family/Social History: Unknown Family HX Smoking Status: Heavy Smoker > 10 Cigarettes Daily Hx Alcohol Use: Yes Frequency of alcohol use: Socially Hx Substance Use: Yes Substance used: marijuana Hx Substance Use Treatment: No Allergies/Home Meds Allergies/Adverse Reactions: Allergies No Known Allergies Allergy (Verified 08/01/16 10:11) Home Medications: Home Meds Medication Instructions Recorded Confirmed Montelukast [Singulair] 10 mg PO DAILY 08/01/13 12/03/17 Albuterol HFA [Ventolin HFA 90 2 puff INH PRN PRN 12/03/14 12/03/17 mcg/actuation (8 g)] Codeine/Butalbital/ASA/Caffein 1 cap PO PRN PRN 08/30/16 12/03/17 [Ascomp W/Codeine 325 mg-50 mg-40 mg-30 mg] Benztropine [Cogentin] 1 tab PO BID 12/03/17 12/03/17 Cyclobenzaprine [Flexeril] 1 tab PO BID 12/03/17 12/03/17 Gabapentin [Neurontin] 1 cap PO TID 12/03/17 12/03/17 Oxycodone HCl/Acetaminophen 1 tab PO Q6H PRN 12/03/17 12/03/17 [Percocet 10-325 mg Tablet] QUEtiapine [SEROquel] 100 mg PO HS 12/03/17 12/03/17 Risperidone [Risperdal] 1 tab PO BID 12/03/17 12/03/17 Review of Systems - Review of Systems Constitutional: absent: Fatigue Eyes: absent: Vision Changes ENT: absent: Hearing Changes Respiratory: absent: SOB Cardiovascular: absent: Chest Pain, Palpitations Gastrointestinal: absent: Abdominal Pain, Stool Changes Genitourinary Female: absent: Dysuria, Frequency Musculoskeletal: Back Pain. absent: Arthralgias, Neck Pain Skin: absent: Rash Neurological: absent: Headache Endocrine: absent: Diaphoresis Hemo/Lymphatic: absent: Adenopathy Psychiatric: absent: Anxiety Physical Exam Vital Signs Temp Pulse Resp BP Pulse Ox 12/03/17 16:02 97.7 F 83 18 117/77 96 Temperature: Afebrile Blood Pressure: Normal Pulse: Regular Respiratory Rate: Normal Appearance: Positive for: Well-Appearing, Non-Toxic, Comfortable Pain Distress: None Mental Status: Positive for: Alert and Oriented X 3 - Systems Exam Head: Present: Atraumatic, Normocephalic Pupils: Present: PERRL Extroacular Muscles: Present: EOMI Conjunctiva: Present: Normal Mouth: Present: Moist Mucous Membranes Neck: Present: Normal Range of Motion. No: Meningeal Signs Respiratory/Chest: Present: Clear to Auscultation, Good Air Exchange. No: Respiratory Distress, Accessory Muscle Use Cardiovascular: Present: Regular Rate and Rhythm, Normal S1, S2. No: Murmurs Abdomen: Present: Normal Bowel Sounds. No: Tenderness, Distention, Peritoneal Signs Back: Present: Normal Inspection, Other (no saddle anesthesia. Midline ~5cm surgical incison to Lumbar area, non-ttp. no erythyema or crepitus. No fluctuance.). No: CVA Tenderness, Midline Tenderness, Paraspinal Tenderness Upper Extremity: Present: Normal Inspection. No: Cyanosis, Edema Lower Extremity: Present: Normal Inspection. No: Edema Neurological: Present: GCS=15, CN II-XII Intact, Speech Normal Skin: Present: Warm, Dry, Normal Color. No: Rashes Psychiatric: Present: Alert, Oriented x 3, Normal Insight, Normal Concentration Medical Decision Making ED Course and Treatment: 47 year old female w/ hx of schizo and recent back surgery p/w back pain. No signs of cauda equina. No N/V deficit. Normal neuro exam. Normal affect. No hallucinations, or SI or HI or depression. Likely chronic back pain- main issue is likely insurance related issues. Will seek POC preg, imaging and PO meds. 1829 Called XR, spoke to rads tech and building drafter: PT likely eloped Spoke to RN: pt likely eloped per RN Pt eloped. - Medication Orders Current Medication Orders: Discontinued Medications Oxycodone/Acetaminophen (Percocet 5/325 Mg Tab) 1 tab PO STAT STA Stop: 12/03/17 16:55 Disposition/Present on Arrival - Present on Arrival Any Indicators Present on Arrival: No History of DVT/PE: No History of Uncontrolled Diabetes: No Urinary Catheter: No History of Decub. Ulcer: No History Surgical Site Infection Following: None - Disposition Have Diagnosis and Disposition been Completed?: Yes Diagnosis: Back pain Disposition: ELOPEMENT - ER ONLY Disposition Time: 18:30 Condition: UNKNOWN Referrals: Roxy Rosenberg MD [Primary Care Provider] - Follow up with primary Forms: [employer]attoo (Welsh)
== END 2017-12-03 18:30 | disposition left against medical advice (07) ==
LOC: ED 15:55
DX: M54.9 Dorsalgia, unspecified (principal)